=== PATIENT | female | born 2000 | race Caucasian/White ===

== ENCOUNTER 2019-03-04 00:58 | Emergency (ER) | payer OTHER ==
[~2019-03-04] VITALS: Ht 157.5 cm; Wt 104.5 kg
[~2019-03-04 00:58] MED LIST: ACET-66 PO
[2019-03-04 01:23] VITALS: BP 123/63
[2019-03-04] MEDS ORDERED: CEPHALEXIN MONOHYDRATE 500 MG CAPSULE PO ONE (01:30)
== END 2019-03-04 01:42 | disposition home or self-care (01) ==
LOC: EMS 00:58
DX: L02.11 Cutaneous abscess of neck (principal); J45.909 Unspecified asthma, uncomplicated

== ENCOUNTER 2019-11-27 13:11 | Emergency (ER) | payer OTHER ==
[~2019-11-27] VITALS: Ht 160 cm; Wt 100.0 kg
[2019-11-27 14:11] LABS: BASOPHILS % (AUTO) 0.2 % (0.0-2.0); HEMATOCRIT 43.6 % (36-46); HEMOGLOBIN 14.5 g/dL (12.0-16.0); LYMPHOCYTES # (AUTO) 1.4 K/uL (1.0-4.8); LYMPHOCYTES % (AUTO) 23.2 % (22.0-44.0); MEAN CORPUSCULAR HEMOGLOBIN 28.2 pg (26.0-34.0); MEAN CORPUSCULAR HGB CONC 33.2 G/dL (31.0-37.0); MEAN CORPUSCULAR VOLUME 85 fL (80-100); MONOCYTES # (AUTO) 0.4 K/uL (0.1-1.0); MONOCYTES % (AUTO) 6.8 % (2.0-9.0); NEUTROPHILS # (AUTO) 4.1 K/uL (1.8-7.7); NEUTROPHILS % (AUTO) 68.8 % (40.0-70.0); PLATELET COUNT (AUTO) 226 K/uL (150-450); RED BLOOD CELL COUNT(AUTO) 5.14 MIL/uL (4.00-5.20)
[2019-11-27 14:26] LABS: ANION GAP 11 mmol/L (8-16); CALCIUM, TOTAL 9.1 mg/dL (8.8-10.5); CARBON DIOXIDE 23 mmol/L (22-29); CHLORIDE 103 mmol/L (98-107); CREATININE 0.71 mg/dL (0.60-1.30); GLOMERULAR FILTR. RATE CALC > 60 mL/min (>60); GLUCOSE,RANDOM 80 mg/dL (70-110); SODIUM SERUM 137 mmol/L (136-145); UREA NITROGEN, BLOOD 8 mg/dL (7-18)
[2019-11-27 14:38] LABS: ALANINE AMINOTRANSFERASE 26 U/L (12-78); ALBUMIN 3.8 g/dL (3.4-5.0); ALKALINE PHOSPHATASE 64 U/L (46-116); ASPARTATE AMINOTRANSFERASE 17 U/L (15-37); BILIRUBIN,TOTAL 0.2 mg/dL (0.1-1.0); HCG,QUANTITATIVE < 1 mIU/mL (0-6); TOTAL PROTEIN, SERUM 8.1 g/dL (6.4-8.2)
[2019-11-27 16:24] VITALS: BP 123/69
== END 2019-11-27 16:27 | disposition home or self-care (01) ==
LOC: EMS 13:24
DX: R19.7 Diarrhea, unspecified (principal); Z03.818 Encounter for observation for suspected exposure to other biological agents ruled out
CPT/HCPCS: 87635

== ENCOUNTER 2022-06-23 01:25 | Emergency (ER) | payer OTHER ==
[~2022-06-23] VITALS: Ht 160 cm; Wt 95.0 kg
[2022-06-23 01:40] LABS: COVID AG,FIA SOURCE NASAL SWAB
[2022-06-23 02:02] LABS: INFLUENZA TYPE A NEGATIVE FOR TYPE A (NEGATIVE); INFLUENZA TYPE B NEGATIVE FOR TYPE B (NEGATIVE)
[2022-06-23] MEDS ORDERED: IBUPROFEN 600 MG TABLET PO ONE (02:15)
[2022-06-23] MEDS ORDERED: ALBUTEROL SULFATE HFA 90 MCG/PUFF 8 GM INHALER IH ONE (02:15)
[2022-06-23] MEDS ORDERED: ONDANSETRON HCL 4 MG TABLET PO ONE (02:30)
[2022-06-23 03:44] VITALS: BP 126/80
== END 2022-06-23 04:09 | disposition home or self-care (01) ==
LOC: EMS 01:26
DX: J06.9 Acute upper respiratory infection, unspecified (principal); J45.909 Unspecified asthma, uncomplicated; Z20.822 Contact with and (suspected) exposure to COVID-19
CPT/HCPCS: 99284; 71046; 87426; 87804; 94640; Q0162; J3535